=== PATIENT | male | born 1955 | race Caucasian/White ===

== ENCOUNTER 2018-06-02 11:36 | Emergency (ER) | payer BC ==
[2018-06-02] MEDS ORDERED: Ondansetron ODT 4 MG TAB ONE (11:43)
[2018-06-02] MEDS ORDERED: Lidocaine 1% 20 ML MDV ONE ×2 (11:44→12:36)
[2018-06-02] MEDS ORDERED: HYDROcodone/Acetaminophen 10/325 mg Tablet ONE (11:55)
[2018-06-02] MEDS ORDERED: Cephalexin 500 MG CAP ONE (13:14)
[2018-06-02] MEDS ORDERED: Adacel (T-DAP) 0.5 ML VIAL ONE (13:14)
--- NOTE | 2018-06-02 17:27 | RAD ---
RIGHT HAND 3 VIEWS: Date: 06/02/18 Mildly comminuted fractures of the middle phalanges of the fourth and fifth fingers are noted. There is slight displacement and angulation of each fracture. Remainder of the hand and wrist appear intact . There is a small, metallic foreign body in the soft tissues on the dorsum of the index finger overl yamile middle phalanx. IMPRESSION: Mildly displaced, mildly comminuted fractures of the middle phalanges of the fourth and fifth fingers . POS: HOME
== END 2018-06-02 13:33 | disposition home or self-care (01) ==
LOC: BURERS 11:36
DX: S62.624A Displaced fracture of middle phalanx of right ring finger, initial encounter for closed fracture (principal); S62.626A Displaced fracture of middle phalanx of right little finger, initial encounter for closed fracture; S61.216A Laceration without foreign body of right little finger without damage to nail, initial encounter; S61.212A Laceration without foreign body of right middle finger without damage to nail, initial encounter; Z87.891 Personal history of nicotine dependence; Z79.899 Other long term (current) drug therapy; W23.0XXA Caught, crushed, jammed, or pinched between moving objects, initial encounter
CPT/HCPCS: 12002; 90471; 90715; J2001; Q0162

== ENCOUNTER 2020-12-29 11:09 | Emergency (ER) | payer MEDICARE, BC ==
[2020-12-29] MEDS ORDERED: Lidocaine 1% PF 5 ML VIAL ONE (11:17)
[2020-12-29] MEDS ORDERED: Bacitracin 1 PK ONE (11:51)
== END 2020-12-29 12:12 | disposition home or self-care (01) ==
LOC: BURERS 11:09
DX: S61.221A Laceration with foreign body of left index finger without damage to nail, initial encounter (principal); W26.0XXA Contact with knife, initial encounter; Z87.891 Personal history of nicotine dependence
CPT/HCPCS: 12001